=== PATIENT | male | born 1985 | race Caucasian/White ===

== ENCOUNTER 2016-03-16 16:00 | Emergency (ER) | payer MEDICAID ==
[2016-03-16] MEDS ORDERED: NS 2,000 ML IV ONE (16:23)
[2016-03-16] MEDS ORDERED: HYDROmorphone 1 MG INJECTION IV ONE (16:23)
[2016-03-16] MEDS ORDERED: SODIUM CHLORIDE 0.9% 10 ML FLUSH FLUSH PRN (16:24)
--- NOTE | 2016-03-16 16:26 | EDPRACDOC ---
- General Information Chief Complaint: Abdominal Pain Stated Complaint: UPPER ABD PAIN VOMITING HX PANCREATITIS Time Seen by Provider: 03/16/16 16:19 Information Source: Patient Mode Of Arrival: Car Home Medications: Home Medications Aspirin 81 mg PO DAILY 06/09/14 Insulin 70/30 Mix [Humulin 70/30] 45 units SQ BID(HERBERT) 06/09/14 Gabapentin [Neurontin] 300 mg PO TID 06/11/14 Metoprolol Succinate (XL) [Toprol Xl] 50 mg PO DAILY 06/11/14 Promethazine [Phenergan] 25 mg PO Q6H PRN 06/11/14 Lovastatin 40 mg PO QHS 03/16/16 Unk Adderall 20 mg PO .SEE COMMENTS 03/16/16 Allergies/Adverse Reactions: Allergies Allergy/AdvReac Type Severity Reaction Status Date / Time Iodinated Contrast Media - Allergy Anaphylaxis Verified 03/16/16 16:47 IV Dye * morphine Allergy See Verified 03/16/16 16:19 Comments Penicillins Allergy Hives* Verified 03/16/16 16:19 - History of Present Illness Onset: this am HPI: Pt c/o upper abd pain with n/v and "high blood sugar" x 1 day. Denies fever, cough, congestion, cp, sob, changes in bowel or bladder, rash. Pain Location: Reports: Epigastric, RUQ, LUQ Pain Context: Reports: Spontaneous Pain Severity: Moderate Pain Quality: Reports: Aching, Sharp Pain Radiation: Reports: Back Adult Abdominal History: Reports: Abdominal Surgery Modifying Factors: improves with: Nothing Associated Signs & Symptoms: Reports: Nausea, Vomiting Oral Intake: Decreased Urinary Output: Normal ED Past Medical History - History Reviewed Yes Nurses notes reviewed and agree except as marked - Patient Medical History Cardiac History: Reports: Hypertension, Hypercholesterolemia GI/ History: Reports: Pancreatitis Systemic History: Reports: Diabetes Surgical History: Reports: Appendectomy, Other (PARTIAL RIGHT FOOT AMPUTATION) - Social Medical History Smoking Status: Heavy tobacco smoker (5 or more cigarettes/day or daily pipe/ cigar) ETOH: None Substance Abuse: None EDM Review of Systems - Review of Systems Constitutional: No Symptoms Reported. negative: Fever, Chills, Weakness, Fatigue, Loss of Appetite Ears: No Symptoms Reported. negative: Pain, Hearing Loss, Drainage, Ear Pulling Throat: No Symptoms Reported. negative: Pain, Swelling Nose: No Symptoms Reported. negative: Congestion, Bleeding, Discharge, Injection, Swelling, Deformity, Ecchymosis, Tender, Abrasion, Laceration Mouth: No Symptoms Reported. negative: Pain, Drooling Respiratory: No Symptoms Reported. negative: Cough, Brassy Cough, Barky Cough, Shortness of Breath, Wheezing, Hemoptysis Cardiovascular: No Symptoms Reported. negative: Chest Pain, Palpitations, Syncope, Edema, Orthopnea, PND, Skin Mottling, Cyanosis Gastrointestinal: Nausea, Pain, Vomiting Genitourinary: No Symptoms Reported. negative: Dysuria, Hematuria, Frequency, Discharge, Bleeding, Testicular Pain, Neurological: No Symptoms Reported. negative: Headache, Dizziness, Seizure, Numbness, Weakness, Speech Difficulty, Gait Difficulty Musculoskeletal: Back Integumentary: No Symptoms Reported. negative: Itching, Rash, Bruising, Wound Allergic/Immunologic: No Symptoms Reported. negative: Hives, Itching Hematologic: No Symptoms Reported. negative: Lymphadenopathy, Easy Bruising, Easy Bleeding Psychiatric: No Symptoms Reported. negative: Anxiety, Depression, Hallucinations, Insomnia, Suicidal - Physical Exam Constitutional: Alert Oriented to: Time, Person, Place Last recorded Vital Signs: Last Vital Signs Temp 98.3 F 03/16/16 16:19 Pulse 89 03/16/16 16:58 Resp 20 03/16/16 16:58 BP 155/80 03/16/16 16:58 Pulse Ox 96 03/16/16 16:58 Oxygen Pulse Oxygen Saturation 96 O2 Device Room Air Oxygen Flow Rate Fraction of Inspired Oxygen ( FIO2) - HEENT Head: Normal ( normocephalic) Eye Exam: Normal (PERRL, EOMI, Sclera white) Oropharynx: Normal (Pharynx:Moist without exudate,Gums-no swelling) Tympanic Membrane: Normal ENT EAC: Normal Nose: No Symptoms Reported (septum midline) Neck: Normal (FROM, trachea at midline) - Respiratory/Cardiovascular Respiratory: Normal - CTA (BBS clear to auscultation without adventitious sounds ) Cardiovascular: Tachycardia - GI Auscultation: Normal (NABS) Palpation: Normal (Soft,No rebound or guarding, non distended) Tenderness: Moderate, RUQ, LUQ, Epigastric - Musculoskeletal Back: Normal (Non-Tender) Extremities: Normal (Normal tone, Pulses 2+ No cyanosis or edema, FROM) - Integumentary Skin: Normal, Warm, Dry Lymphatics: Normal (no adenopathy) - Neurologic Memory Impaired: Normal Motor Function: Normal (Normal tone, Pulses 2+ No cyanosis or edema, FROM) Mood Description: Normal Perception: Normal - Differential Diagnosis Cholecystitis, Cholelithiasis, DKA, Gastroenteritis, Pancreatitis, PUD - Results 03/16/16 16:40 03/16/16 17:45 WBC 9.8 xk/uL (3.8-10.8) 03/16/16 16:40 RBC 5.21 xM/uL (4.70-6.10) 03/16/16 16:40 Hgb 15.9 g/dL (14.0-18.0) 03/16/16 16:40 Hct 46.9 % (42-52) 03/16/16 16:40 MCV 90 fL (80-94) 03/16/16 16:40 MCH 30.6 pg (27-32) 03/16/16 16:40 MCHC 33.9 g/dl (33-36) 03/16/16 16:40 RDW 13.6 % (11.5-14.5) 03/16/16 16:40 Plt Count 236 xk/uL (130-400) 03/16/16 16:40 MPV 10.4 fL (7.4-10.4) 03/16/16 16:40 Neut % (Auto) 67.6 % (45-76) 03/16/16 16:40 Lymph % (Auto) 23.6 % (17-44) 03/16/16 16:40 [place] % (Auto) 4.2 % (3-10) 03/16/16 16:40 Eos % (Auto) 3.2 % (0-5) 03/16/16 16:40 Baso % (Auto) 1.4 % (0-2) 03/16/16 16:40 Absolute Neuts (auto) 6.57 xk/uL (1.7-8.2) 03/16/16 16:40 Absolute Lymphs (auto) 2.25 xk/uL (0.65-4.75) 03/16/16 16:40 VBG pH 7.45 pH UNITS (7.32-7.43) H 03/16/16 16:48 Mixed VBG pCO2 35.0 mmHg (40-60) L 03/16/16 16:48 Mixed VBG pO2 164.0 mmHg (30-55) H 03/16/16 16:48 Mixed VBG HCO3 24.3 MMOL/L (22-27) 03/16/16 16:48 Mixed VBG Total CO2 25.4 MMOL/L (23-27) 03/16/16 16:48 Mixed VBG Base Excess 0.7 (+/- 2) 03/16/16 16:48 POC Capillary Glucose 476 MG/DL (70-99) H* 03/16/16 16:25 Urine Color Pale yell0w 03/16/16 16:45 Urine Clarity Clear 03/16/16 16:45 Urine pH 7.0 (5.0-8.0) 03/16/16 16:45 Ur Specific [place] 1.005 (1.003-1.035) 03/16/16 16:45 Urine Protein Neg (NEG/TRACE) 03/16/16 16:45 Urine Glucose (UA) 3+ (NEGATIVE) 03/16/16 16:45 Urine Ketones Neg (NEGATIVE) 03/16/16 16:45 Urine Occult Blood Neg (NEG/TRACE) 03/16/16 16:45 Urine Nitrite Neg (NEGATIVE) 03/16/16 16:45 Urine Bilirubin Neg (NEGATIVE) 03/16/16 16:45 Urine Urobilinogen 2 MG/DL (0-1) H 03/16/16 16:45 Ur Leukocyte Esterase Neg (NEGATIVE) 03/16/16 16:45 Urine RBC 0-2 (0-2) 03/16/16 16:45 Urine WBC 0-2 (0-2) 03/16/16 16:45 Urine Opiates Screen Neg (NEGATIVE) 03/16/16 16:45 Ur Oxycodone Screen *positive* (NEGATIVE) H 03/16/16 16:45 Urine Methadone Screen Neg (NEGATIVE) 03/16/16 16:45 Ur Barbiturates Screen Neg (NEGATIVE) 03/16/16 16:45 Ur Tricyclics Screen Neg (NEGATIVE) 03/16/16 16:45 Ur Phencyclidine Scrn Neg (NEGATIVE) 03/16/16 16:45 Ur Amphetamines Screen Neg (NEGATIVE) 03/16/16 16:45 U Methamphetamines Scrn Neg (NEGATIVE) 03/16/16 16:45 Urine MDMA Screen Neg (NEGATIVE) 03/16/16 16:45 U Benzodiazepines Scrn *positive* (NEGATIVE) H 03/16/16 16:45 Urine Cocaine Screen Neg (NEGATIVE) 03/16/16 16:45 Ur THC Screen *positive* (NEGATIVE) H 03/16/16 16:45 Lab Results 03/16/16 03/16/16 03/16/16 16:48 16:45 16:45 WBC RBC Hgb Hct MCV MCH MCHC RDW Plt Count MPV Neut % (Auto) Lymph % (Auto) [place] % (Auto) Eos % (Auto) Baso % (Auto) Absolute Neuts (auto) Absolute Lymphs (auto) VBG pH 7.45 H Mixed VBG pCO2 35.0 L Mixed VBG pO2 164.0 H Mixed VBG HCO3 24.3 Mixed VBG Total CO2 25.4 Mixed VBG Base Excess 0.7 POC Capillary Glucose Urine Color Pale yell0w Urine Clarity Clear Urine pH 7.0 Ur Specific [place] 1.005 Urine Protein Neg Urine Glucose (UA) 3+ Urine Ketones Neg Urine Occult Blood Neg Urine Nitrite Neg Urine Bilirubin Neg Urine Urobilinogen 2 H Ur Leukocyte Esterase Neg Urine RBC 0-2 Urine WBC 0-2 Urine Opiates Screen Neg Ur Oxycodone Screen *positive* H Urine Methadone Screen Neg Ur Barbiturates Screen Neg Ur Tricyclics Screen Neg Ur Phencyclidine Scrn Neg Ur Amphetamines Screen Neg U Methamphetamines Scrn Neg Urine MDMA Screen Neg U Benzodiazepines Scrn *positive* H Urine Cocaine Screen Neg Ur THC Screen *positive* H 03/16/16 03/16/16 16:40 16:25 WBC 9.8 RBC 5.21 Hgb 15.9 Hct 46.9 MCV 90 MCH 30.6 MCHC 33.9 RDW 13.6 Plt Count 236 MPV 10.4 Neut % (Auto) 67.6 Lymph % (Auto) 23.6 [place] % (Auto) 4.2 Eos % (Auto) 3.2 Baso % (Auto) 1.4 Absolute Neuts (auto) 6.57 Absolute Lymphs (auto) 2.25 VBG pH Mixed VBG pCO2 Mixed VBG pO2 Mixed VBG HCO3 Mixed VBG Total CO2 Mixed VBG Base Excess POC Capillary Glucose 476 H* Urine Color Urine Clarity Urine pH Ur Specific [place] Urine Protein Urine Glucose (UA) Urine Ketones Urine Occult Blood Urine Nitrite Urine Bilirubin Urine Urobilinogen Ur Leukocyte Esterase Urine RBC Urine WBC Urine Opiates Screen Ur Oxycodone Screen Urine Methadone Screen Ur Barbiturates Screen Ur Tricyclics Screen Ur Phencyclidine Scrn Ur Amphetamines Screen U Methamphetamines Scrn Urine MDMA Screen U Benzodiazepines Scrn Urine Cocaine Screen Ur THC Screen - Additional Information Pt very selective in medications that he wants, continues to change allergies in order to get meds that he wants. Hx of similar visits, negative ct and lipase in previous visits. - Departure Disposition: AMA Condition: Stable Final Diagnosis: Hyperglycemia, Abdominal pain N&V (nausea and vomiting) Qualifiers: Vomiting type: unspecified Vomiting Intractability: non-intractable Qualified Code(s): R11.2 - Nausea with vomiting, unspecified Instructions: Acute Nausea and Vomiting (ED) Education/Counseling Given To: Patient Education/Counseling Given Regarding: Diagnosis, Treatment Referrals: None,No Provider [Primary Care Provider] - One Week
[2016-03-16 16:27] VITALS: TEMP 98.3; BMI 22.8
[2016-03-16] MEDS ORDERED: REGULAR INSULIN 100 UNITS/ML - 3 ML VIAL IV ONE (16:27)
[2016-03-16] MEDS: ONDANSETRON HCL 4 MG/2 ML VIAL IV ONE ×2 (16:48→16:52)
[2016-03-16 16:55] LABS: ALL NEG? NO
[2016-03-16 16:56] LABS: VENOUS BEb 0.7 (+/- 2); VENOUS TCO2 25.4 MMOL/L (23-27)
[2016-03-16 16:58] LABS: AUTOMATED BASOPHIL 1.4 % (0-2); AUTOMATED EOSINOPHIL 3.2 % (0-5); AUTOMATED LYMPH 23.6 % (17-44); AUTOMATED MONOCYTE 4.2 % (3-10); AUTOMATED NEUTROPHIL 67.6 % (45-76); MPV 10.4 fL (7.4-10.4)
[2016-03-16 16:59] VITALS: BP 155/80; PULSE 89
[2016-03-16] MEDS ORDERED: Pharmacy Review for Metformin - IV Contrast Given SCH (17:00)
[2016-03-16 17:22] LABS: MDMA* NEG (NEGATIVE); METHAMPHETAMINES NEG (NEGATIVE); OXYCODONE *POSITIVE* (NEGATIVE)
[2016-03-16 17:27] LABS: LEUKOCYTES/URINE NEG (NEGATIVE); NITRITE/URINE NEG (NEGATIVE); RBC/URINE 0-2 (0-2); URINE OCCULT BLOOD NEG (NEG/TRACE); WBC/URINE 0-2 (0-2)
[2016-03-16 18:10] LABS: BLOOD UREA NITROGEN 17 MG/DL (9-20); CALC CORRECTED 9.2 MG/DL (8.4-10.2); CALCIUM 8.8 MG/DL (8.4-10.2); CALCULATED OSMOLALITY 286 MOs/Kg (270-290); CHLORIDE 105 mEq/L (98-107); GLUCOSE 340 MG/DL (70-99); SODIUM LEVEL 141 mEq/L (137-146); TOTAL PROTEIN 7.1 G/DL (6.3-8.2)
== END 2016-03-16 18:15 | disposition left against medical advice (07) ==
LOC: ED 16:00
DX: R10.9 Unspecified abdominal pain (principal); R11.2 Nausea with vomiting, unspecified; E11.65 Type 2 diabetes mellitus with hyperglycemia
CPT/HCPCS: 36415; 80053; 80307; 81001; 82803; 82962; 83690; 85025; 96361; 96374; 96375; 99283; J1170; J2405; J3490